=== PATIENT | female | born 1985 | race Caucasian/White ===

== ENCOUNTER → 2018-04-18 | Outpatient (CLI) | payer SELFPAY ==
[~2018-04-18] MED LIST: CLONAZEPAM0.5 MG PO; PROZAC20 MG PO; XANAX0.5 MG
--- NOTE | 2018-04-18 16:14 | Diagnostic Imaging Report ---
#[id number] - USBRECOMRT ULTRASOUND OF THE RIGHT BREAST : 04/18/2018 No prior exams were available for comparison. Color flow and real-time ultrasound were performed on entire the right breast with scanning in all four quadrants, retroareolar region and the right axilla. There is no cystic or solid lesion identified. Extensive scanning in the area where the patient feels something does not reveal an abnormality. The implant appears intact. IMPRESSION: BENIGN There is no sonographic evidence of malignancy. Follow-up with ACR/ACS guidelines. Christoph Pnik Jr., D.O. cw/:04/18/2018 10:57:37 Fishing Tackle Repairer: HARMAN MEJIAS, [facility] letter sent: Normal Exam Ultrasound BI-RADS: 2 Benign
== END ==
LOC: US 09:13
PROVIDERS: ATTEND Internal Medicine
DX: N63.10 Unspecified lump in the right breast, unspecified quadrant (principal)

== ENCOUNTER 2018-12-05 19:48 | Emergency (ER) | payer SELFPAY ==
[~2018-12-05] VITALS: Ht 167.6 cm; Wt 59.0 kg
[2018-12-05] MEDS ORDERED: KETOROLAC TROMETHAMINE 30 MG/ML VIAL IV NR (20:04)
[2018-12-05] MEDS ORDERED: ONDANSETRON HCL INJ 2MG/ML 2ML 2 MG/ML VIAL IV NR (20:07)
[2018-12-05] MEDS ORDERED: SODIUM CHLORIDE 0.9% 1000ML 1,000 ML IV SCH ×2 (20:15→21:15)
--- NOTE | 2018-12-05 20:54 | Diagnostic Imaging Report ---
Frontal and lateral views of the chest. HISTORY: Fever, dizzy COMPARISON: None available. DISCUSSION: Lungs: The lungs are well inflated. No evidence of a consolidative pneumonia or pulmonary alveolar edema. Pleura: No pleural effusion or pneumothorax. Heart and mediastinum: The cardiomediastinal silhouette appears unremarkable. Bones and soft tissues: Appear unremarkable. IMPRESSION: No acute radiographic abnormality. Signed by: Dr. Tony Bolivar D.O., M.M.M. on 12/05/2018 8:51 PM
== END 2018-12-05 22:30 | disposition home or self-care (01) ==
LOC: ER 19:48 → FSED 22:30
DX: R50.9 Fever, unspecified (principal); B34.9 Viral infection, unspecified
CPT/HCPCS: 71046; 80053; 81003; 81025; 83605; 85025; 87086; 87400; 93005; 99284

== ENCOUNTER 2019-04-03 10:12 | Emergency (ER) | payer SELFPAY ==
[~2019-04-03] VITALS: Ht 167.6 cm; Wt 63.5 kg
--- OUTSIDE RECORDS SUMMARY | 2019-04-03 10:16 | XMS REPORT ---
Author [facility] Address Unknown Phone Unavailable Care Team Providers Care Commissioner [employer] Name Role Phone Tayla LANDRY Unavailable Unavailable Sushma OREILLY Unavailable Unavailable Problems This patient has no known problems. Allergies, Adverse Reactions, Alerts This patient has no known allergies or adverse reactions. Medications This patient has no known medications. Results Test Description Test Time Test Comments Text Results Atomic Results Result Comments CXR [facility] 2018-12-05 20:50:00 [facility] [address] [address] Patient Name: SYDNEE VICENTE MR #: [id number] : 1985 Age/Sex: 33/F Req #: [id number] Adm Physician: Ordered by: ANA MARIA LANDRY MD Report #: [id number] Location: [facility] Room/Bed: Procedure: [id number] HOPD/CXR 2 VIEW - [facility] Exam Date: 12/05/18 Exam Time: 2029 REPORT STATUS: Signed Frontal and lateral views of the chest. HISTORY: Fever, dizzy COMPARISON: None available. DISCUSSION: Lungs: The lungs are well inflated. No evidence of a consolidative pneumonia or pulmonary alveolar edema. Pleura: No pleural effusion or pneumothorax. Heart and mediastinum: The cardiomediastinal silhouette appears unremarkable. Bones and soft tissues: Appear unremarkable. IMPRESSION: No acute radiographic abnormality. Signed by: Dr. Jennifer Bolivar D.O., M.M.M. on 12/05/2018 8:51 PM Dictated By: JENNIFER BOLIVAR DO 50 Transcribed By: CRISTIANE on 12/05/182050 COPY TO: ANA MARIA LANDRY MD US BREAST COMPLETE RIGHT [address] [address] Patient Name: SYDNEE VICENTE MR #: [id number] : 1985 Age/Sex: 32/F Req #: [id number] Adm Physician: Ordered by: JESUS OREILLY M.D. Report #: [id number] Location: Room/Bed: Procedure: [id number] US/US BREAST COMPLETE RIGHT Exam Date: 04/18/18 Exam Time: 0938 REPORT STATUS: Signed #[id number] - USBRECOMRT ULTRASOUND OF THE RIGHT BREAST : 04/18/2018 No prior exams were available for comparison. Color flow and real-time ultrasound were performed on entire the right breast with scanning in all four quadrants, retroareolar region and the right axilla. There is no cystic or solid lesion identified. Extensive scanning in the area where the patient feels something does not reveal an abnormality. The implant appears intact. IMPRESSION: BENIGN There is no sonographic evidence of malignancy. Follow-up with ACR/ACS guidelines. Jean Pink Jr., D.O. cw/:04/18/2018 10:57:37 Lacquer Machine Feeder: HARMAN HOPKINS RT, [facility] letter sent: Normal Exam Ultrasound BI- RADS: 2 Benign Dictated By: JEAN PINK DO 1059 Transcribed By: SUPA on 04/18/18 1059 COPY TO: JESUS OREILLY M.D.
--- NOTE | 2019-04-03 12:00 | Diagnostic Imaging Report ---
Lumbar Spine Radiographs: 3 views HISTORY: Pain COMPARISON: None available. DISCUSSION: Some of the osseous structures are partially obscured by stool and bowel gas. There are five non-rib bearing lumbar vertebral bodies. The alignment of the spine is within normal limits. No displaced fracture or compression deformity is identified. Vertebral body heights are maintained. IMPRESSION: No acute radiographic abnormality. Signed by: Dr. Dayne Chambers MD on 04/03/2019 11:56 AM
[2019-04-03 12:03] VITALS: BP 120/72
== END 2019-04-03 12:16 | disposition home or self-care (01) ==
LOC: FSED 10:12
DX: S33.5XXA Sprain of ligaments of lumbar spine, initial encounter (principal); F32.9 Major depressive disorder, single episode, unspecified; F41.9 Anxiety disorder, unspecified; F17.200 Nicotine dependence, unspecified, uncomplicated; V49.49XA Driver injured in collision with other motor vehicles in traffic accident, initial encounter; Y92.410 Unspecified street and highway as the place of occurrence of the external cause
CPT/HCPCS: 72100; 81025; 99283

== ENCOUNTER → 2021-03-06 | Outpatient (CLI) | payer SELFPAY | LOC: NM 08:55 | PROVIDERS: ATTEND Family Medicine | DX: R07.9 Chest pain, unspecified (principal) | CPT/HCPCS: 78452; 81025; 93017; A9502 ==

== ENCOUNTER 2021-03-07 01:37 | Emergency (ER) | payer SELFPAY ==
[~2021-03-07] VITALS: Ht 167.6 cm; Wt 69.4 kg
[2021-03-07] MEDS ORDERED: SODIUM CHLORIDE 0.9% 1000ML 1,000 ML IV STA (01:48)
[2021-03-07] MEDS ORDERED: KETOROLAC TROMETHAMINE 30 MG/ML VIAL IV STA (01:52)
[2021-03-07 01:59] LABS: BASOPHILS # (AUTO) 0.1 (0.0-0.1); BASOPHILS % 0.7 % (0.0-1.0); EOSINOPHILS # (AUTO) 0.2 (0.0-0.4); EOSINOPHILS % 2.3 % (0.0-6.0); HEMATOCRIT 37.6 % (34.2-44.1); HEMOGLOBIN 12.9 g/dL (12.0-16.0); LYMPHOCYTES # (AUTO) 4.6 (1.0-3.2); LYMPHOCYTES % 45.3 % (18.0-39.1); MEAN CORPUSCULAR HEMOGLOBIN 30.9 pg (28-32); MEAN CORPUSCULAR HGB CONC 34.3 g/dL (31-35); MONOCYTES # (AUTO) 0.5 (0.2-0.8); NEUTROPHILS # (AUTO) 4.7 (2.1-6.9); NEUTROPHILS % 46.4 % (38.7-80.0); PLATELET COUNT 253 x10e3/uL (140-360); RED BLOOD COUNT 4.18 x10e6/uL (3.6-5.1); RED CELL DISTRIBUTION WIDTH 12.2 % (11.7-14.4)
[2021-03-07] MEDS ORDERED: ASPIRIN 81 MG CHEW TAB PO ONE (02:00)
[2021-03-07 02:04] LABS: AMPHETAMINES SCREEN,URINE NEGATIVE (NEGATIVE); BENZODIAZEPINES SCREEN,URINE NEGATIVE (NEGATIVE); PHENCYCLIDINE SCREEN,URINE NEGATIVE (NEGATIVE)
[2021-03-07 02:19] LABS: ALANINE AMINOTRANSFERASE 32 IU/L (0-55); ALBUMIN 3.8 g/dL (3.5-5.0); ALBUMIN/GLOBULIN RATIO 1.2 (0.8-2.0); ALKALINE PHOSPHATASE 36 IU/L (40-150); ANION GAP 13.2 mmol/L (8-16); BLOOD UREA NITROGEN 11 mg/dL (7-26); BUN/CREATININE RATIO 13 (6-25); CALCIUM 8.7 mg/dL (8.4-10.2); CARBON DIOXIDE 24 mmol/L (22-29); CHLORIDE 106 mmol/L (98-107); CREATINE KINASE 93 IU/L (29-168); CREATININE, SERUM 0.85 mg/dL (0.57-1.11); EST GLOMERULAR FILTRATION RATE > 60 ML/MIN (60-); GLUCOSE 213 mg/dL (74-118); POTASSIUM 3.2 mmol/L (3.5-5.1); SODIUM 140 mmol/L (136-145)
[2021-03-07] MEDS ORDERED: SODIUM CHLORIDE 0.9% 50ML 50 ML ONE (03:23)
[2021-03-07] MEDS ORDERED: IOPAMIDOL 370 MG/ML 200 ML INFUS..BTL INJ ONE (03:23)
[2021-03-07 05:20] VITALS: BP 125/70
== END 2021-03-07 04:30 | disposition home or self-care (01) ==
LOC: ER 01:47
DX: R07.9 Chest pain, unspecified (principal); R06.02 Shortness of breath; R42 Dizziness and giddiness; F41.9 Anxiety disorder, unspecified; F32.9 Major depressive disorder, single episode, unspecified
CPT/HCPCS: 36415; 71045; 71260; 80053; 80307; 80320; 81025; 82550; 82553; 83880; 84484; 85025; 85379; 93005; 99284; J7030; Q9967